=== PATIENT | male | born 1980 | race Caucasian/White ===

== ENCOUNTER 2017-07-18 05:27 | Emergency (ER) | payer BC ==
[2017-07-18] MEDS ORDERED: TORAdol 30 mg Injection IV ONE (05:30)
[2017-07-18] MEDS ORDERED: Phenergan 25 MG INJ IV ONE (05:30)
[2017-07-18] MEDS ORDERED: Sodium Chloride 0.9% 1000 ML 1,000 ML IV SCH (05:30)
[2017-07-18] MEDS ORDERED: Phenergan 25 MG INJ ONE (05:34)
[2017-07-18] MEDS ORDERED: Sodium Chloride 0.9% 1000 ML 1,000 ML ONE (05:34)
[2017-07-18] MEDS ORDERED: TORAdol 30 mg Injection ONE (05:34)
--- NOTE | 2017-07-18 05:35 | ERPHSYRPT ---
- History of Present Illness Time Seen by Provider: 07/18/17 05:27 Historian: patient Exam Limitations: no limitations Physician History: ABOUT 1 HOUR AGO PT AWOKE WITH LEFT FLANK PAIN, NAUSEA, VOMITING, CHILLS AND DIAPHORESIS. Allergies/Adverse Reactions: No Known Drug Allergies Allergy (Unverified 07/18/17 05:33) - Review of Systems Constitutional: Chills Respiratory: No Dyspnea Cardiac: No Chest Pain Abdominal/Gastrointestinal: Nausea, Vomiting, Other (LEFT FLANK PAIN) Endocrine: Excessive Sweating All Other Systems: Reviewed and Negative - Nursing Vital Signs Nursing Vital Signs: Initial Vital Signs Pulse Rate 58 L 07/18/17 05:49 Respiratory Rate 22 07/18/17 05:49 Blood Pressure 134/74 07/18/17 05:49 O2 Sat by Pulse Oximetry 99 07/18/17 05:49 Pain Scale Pain Intensity 0 - Physical Exam General Appearance: moderate distress, alert Eye Exam: PERRL/EOMI Ears, Nose, Throat Exam: TMs normal, pharynx normal, moist mucous membranes Neck Exam: normal inspection Respiratory Exam: lungs clear Cardiovascular Exam: normal heart sounds Gastrointestinal/Abdomen Exam: soft, normal bowel sounds, No tenderness Extremity Exam: normal inspection, No swelling Neurologic Exam: alert, cooperative Skin Exam: diaphoresis - Course Nursing assessment & vital signs reviewed: Yes - CT Exams Abdomen/Pelvis CT Interpretation: Tele-radiologist Report (1.7 mm CALCIFIED STONE IN THE DISTAL LEFT URETER JUST ABOVE THE LEFT UVJ CREATING A MODERATE LEFT HYDRONEPHROSIS. SMALL NON-OBSTRUCTING CALCIFIED STONE IN THE UPPER POLE OF THE RIGHT KIDNEY, NO RIGHT HYDRONEPHROSIS.) Ordered Tests: Active Orders 24 hr Category Date Time Status Clean Catch Urine Specimen STAT Care 07/18/17 05:30 Active IV Insertion STAT Care 07/18/17 05:30 Active ABDOMEN AND PELVIS W/0 CONTRAS [CT] Stat Exams 07/18/17 05:31 Taken AMYLASE Stat Lab 07/18/17 05:47 Completed CBC W DIFF Stat Lab 07/18/17 05:47 Completed CMP Stat Lab 07/18/17 05:47 Completed LIPASE Stat Lab 07/18/17 05:47 Completed MAG [MAGNESIUM] Stat Lab 07/18/17 05:47 Completed UA W/ MICROSCOPIC Stat Lab 07/18/17 05:47 Completed Urine Triage Profile Stat Lab 07/18/17 05:47 Completed Medication Summary Generic Name Dose Route Start Last Admin Trade Name Deejay PRN Reason Stop Dose Admin Sodium Chloride 1,000 mls @ 200 mls/hr 07/18/17 05:30 07/18/17 05:46 Sodium Chloride 0.9% 1000 Ml IV 08/17/17 05:29 200 mls/hr .Q5H OSMAR Administration Discontinued Medications Generic Name Dose Route Start Last Admin Trade Name Deejay PRN Reason Stop Dose Admin Hydromorphone HCl 1 mg 07/18/17 05:36 07/18/17 05:41 Hydromorphone 1 Mg/Ml Ampule IV 07/18/17 05:37 1 mg STAT ONE Administration Hydromorphone HCl Confirm 07/18/17 05:41 Hydromorphone 1 Mg/Ml Ampule Administered 07/18/17 05:42 Dose 1 mg .ROUTE .STK-MED ONE Hydromorphone HCl 1 mg 07/18/17 06:40 07/18/17 06:43 Hydromorphone 1 Mg/Ml Ampule IV 07/18/17 06:41 1 mg STAT ONE Administration Hydromorphone HCl Confirm 07/18/17 06:42 Hydromorphone 1 Mg/Ml Ampule Administered 07/18/17 06:43 Dose 1 mg .ROUTE .STK-MED ONE Ketorolac Tromethamine 30 mg 07/18/17 05:30 07/18/17 05:37 Toradol 30 Mg Injection IV 07/18/17 05:31 30 mg STAT ONE Administration Ketorolac Tromethamine Confirm 07/18/17 05:34 Toradol 30 Mg Injection Administered 07/18/17 05:35 Dose 30 mg .ROUTE .STK-MED ONE Promethazine HCl 12.5 mg 07/18/17 05:30 07/18/17 05:38 Phenergan 25 Mg Inj IV 07/18/17 05:31 25 mg STAT ONE Administration Promethazine HCl Confirm 07/18/17 05:34 Phenergan 25 Mg Inj Administered 07/18/17 05:35 Dose 25 mg .ROUTE .STK-MED ONE Lab/Rad Data: Laboratory Result Diagrams 07/18/17 05:47 07/18/17 05:47 Laboratory Results 07/18/17 07/18/17 07/18/17 Range/Units 05:47 05:47 05:47 WBC 9.5 (4.0-10.5) K/mm3 RBC 4.96 (4.1-5.6) M/mm3 Hgb 14.7 (12.5-18.0) gm/dl Hct 42.5 (42-50) % MCV 85.7 (78-100) fl MCH 29.6 (26-32) pg MCHC 34.6 (32-36) g/dl RDW 13.2 (11.5-14.0) % Plt Count 261 (150-450) K/mm3 MPV 10.6 H (6-9.5) fl Gran % 45.6 (36.0-66.0) % Lymphocytes % 43.3 (24.0-44.0) % Monocytes % 7.3 (0.0-12.0) % Eosinophils % 3.2 (0.00-5.0) % Basophils % 0.6 (0.0-0.4) % Basophils # 0.06 (0-0.4) Sodium 139 (136-145) mEq/L Potassium 3.4 L (3.5-5.1) mEq/L Chloride 105 (98-107) mEq/L Carbon Dioxide 22.6 (21-32) mEq/L Anion Gap 14.6 (5-15) MEQ/L BUN 12 (9-20) mg/dL Creatinine 1.17 (0.55-1.30) mg/dl Estimated GFR > 60 ML/MIN Glucose 128 H (70-110) MG/DL Calcium 9.3 (8.5-10.1) mg/dL Magnesium 1.9 (1.8-2.4) mg/dL Total Bilirubin 0.40 (0.2-1.0) mg/dL AST 29 (15-37) U/L ALT 24 (12-78) U/L Alkaline Phosphatase 78 (46-116) U/L Serum Total Protein 7.1 (6.4-8.2) gm/dL Albumin 4.1 (3.4-5.0) g/dL Amylase 41 (25-115) U/L Lipase 112 (73-393) U/L Ur Collection Type Urine Color (YELLOW) Urine Appearance (CLEAR) Urine pH (5-6) Ur Specific [place] (1.005-1.025) Urine Protein (Negative) Urine Ketones (NEGATIVE) Urine Blood (0-5) Tyree/ul Urine Nitrite (NEGATIVE) Urine Bilirubin (NEGATIVE) Urine Urobilinogen (0-1) mg/dL Ur Leukocyte Esterase (NEGATIVE) Urine Microscopic RBC (0-2) /HPF Ur Epithelial Cells (FEW) /HPF Urine Bacteria (NEGATIVE) /HPF Urine Mucus (NEGATIVE) /HPF Urine Glucose (NEGATIVE) mg/dL Urine Opiates Level (NEGATIVE) Ur Methadone (NEGATIVE) Urine Barbiturates (NEGATIVE) Ur Phencyclidine (PCP) (NEGATIVE) Urine Amphetamine (NEGATIVE) U Benzodiazepine Level (NEGATIVE) Urine Cocaine (NEGATIVE) Urine Marijuana (THC) (NEGATIVE) Specimen Received 07/18/17 07/18/17 Range/Units 05:47 05:47 WBC (4.0-10.5) K/mm3 RBC (4.1-5.6) M/mm3 Hgb (12.5-18.0) gm/dl Hct (42-50) % MCV (78-100) fl MCH (26-32) pg MCHC (32-36) g/dl RDW (11.5-14.0) % Plt Count (150-450) K/mm3 MPV (6-9.5) fl Gran % (36.0-66.0) % Lymphocytes % (24.0-44.0) % Monocytes % (0.0-12.0) % Eosinophils % (0.00-5.0) % Basophils % (0.0-0.4) % Basophils # (0-0.4) Sodium (136-145) mEq/L Potassium (3.5-5.1) mEq/L Chloride (98-107) mEq/L Carbon Dioxide (21-32) mEq/L Anion Gap (5-15) MEQ/L BUN (9-20) mg/dL Creatinine (0.55-1.30) mg/dl Estimated GFR ML/MIN Glucose (70-110) MG/DL Calcium (8.5-10.1) mg/dL Magnesium (1.8-2.4) mg/dL Total Bilirubin (0.2-1.0) mg/dL AST (15-37) U/L ALT (12-78) U/L Alkaline Phosphatase (46-116) U/L Serum Total Protein (6.4-8.2) gm/dL Albumin (3.4-5.0) g/dL Amylase (25-115) U/L Lipase (73-393) U/L Ur Collection Type CLEAN CATCH Urine Color YELLOW (YELLOW) Urine Appearance CLEAR (CLEAR) Urine pH 5.0 (5-6) Ur Specific [place] 1.030 (1.005-1.025) Urine Protein NEGATIVE (Negative) Urine Ketones NEGATIVE (NEGATIVE) Urine Blood 250 (0-5) Tyree/ul Urine Nitrite NEGATIVE (NEGATIVE) Urine Bilirubin NEGATIVE (NEGATIVE) Urine Urobilinogen NORMAL (0-1) mg/dL Ur Leukocyte Esterase NEGATIVE (NEGATIVE) Urine Microscopic RBC 10-15 (0-2) /HPF Ur Epithelial Cells RARE (FEW) /HPF Urine Bacteria FEW (NEGATIVE) /HPF Urine Mucus MODERATE (NEGATIVE) /HPF Urine Glucose NEGATIVE (NEGATIVE) mg/dL Urine Opiates Level NEG. (NEGATIVE) Ur Methadone NEG. (NEGATIVE) Urine Barbiturates NEG. (NEGATIVE) Ur Phencyclidine (PCP) NEG. (NEGATIVE) Urine Amphetamine NEG. (NEGATIVE) U Benzodiazepine Level NEG. (NEGATIVE) Urine Cocaine NEG. (NEGATIVE) Urine Marijuana (THC) NEG. (NEGATIVE) Specimen Received [id number] - Departure Time of Disposition: 07:08 Departure Disposition: Home Clinical Impression: LEFT RENAL COLIC Condition: Stable Critical Care Time: No Referrals: LYNNETTE SALAZAR MD [Primary Care Provider] - Instructions: Kidney Stones Additional Instructions: FOLLOW UP WITH DR DINH(UROLOGIST): CALL [phone] TODAY FOR AN APPOINTMENT. FOLLOW UP WITH PRIVATE DOCTOR TODAY. Prescriptions: Hydrocodone Bit/Acetaminophen [[place] 7.5-325 Tablet] 1 each PO Q4H PRN PRN #14 tablet PRN Reason: Pain Ondansetron [Zofran Odt] 4 mg PO Q4H PRN PRN #14 tab.rapdis PRN Reason: Nausea/Vomiting
[2017-07-18] MEDS ORDERED: Hydromorphone 1 mg/ml Ampule IV ONE ×2 (05:36→06:40)
[2017-07-18] MEDS ORDERED: Hydromorphone 1 mg/ml Ampule ONE ×2 (05:41→06:42)
[2017-07-18 05:44] LABS: BASOPHIL % 0.6 % (0.0-0.4); Eosinophil % 3.2 % (0.00-5.0); Granulocytes % 45.6 % (36.0-66.0); Lymphocytes % 43.3 % (24.0-44.0); Mean Cell Volume 85.7 fl (78-100); Mean Corpuscular Hemoglobin 29.6 pg (26-32); Mean Platelet Volume 10.6 fl (6-9.5); Monocytes % 7.3 % (0.0-12.0); Platelet Count 261 K/mm3 (150-450); Red Blood Count 4.96 M/mm3 (4.1-5.6); Red Cell Distribution Width 13.2 % (11.5-14.0); White Blood Count 9.5 K/mm3 (4.0-10.5)
[2017-07-18 06:12] LABS: ALBUMIN 4.1 g/dL (3.4-5.0); ALKALINE PHOSPHATASE 78 U/L (46-116); ANION GAP 14.6 MEQ/L (5-15); BLOOD UREA NITROGEN 12 mg/dL (9-20); CHLORIDE 105 mEq/L (98-107); Carbon Dioxide 22.6 mEq/L (21-32); Glucose 128 MG/DL (70-110); LIPASE 112 U/L (73-393); Potassium 3.4 mEq/L (3.5-5.1); SGOT/AST 29 U/L (15-37); SGPT/ALT 24 U/L (12-78); SODIUM 139 mEq/L (136-145); Total Protein 7.1 gm/dL (6.4-8.2)
[2017-07-18 06:38] LABS: ADD URINE CULTURE? NO (NO); Bilirubin NEGATIVE (NEGATIVE); Blood 250 Ery/ul (0-5); COMPLETE URINE MICROSCOPIC? YES; Collection Type CLEAN CATCH; Glucose NEGATIVE (NEGATIVE); Leukocyte Esterase NEGATIVE (NEGATIVE)
[2017-07-18 06:39] LABS: Bacteria FEW /HPF (NEGATIVE); Epithelial Cells RARE /HPF (FEW); Mucus MODERATE /HPF (NEGATIVE)
[2017-07-18 07:00] VITALS: PULSE 56
[2017-07-18] MEDS ORDERED: Klor Con 10 MEQ PO ONE ×2 (07:09→07:11)
[2017-07-18 07:15] VITALS: BP 127/56; O2SAT 97
--- NOTE | 2017-07-18 09:12 | XRAY ---
Indication: Left flank pain, nausea, and vomiting. Multiple contiguous axial images obtained through the abdomen and pelvis without contrast as ordered. Comparison: None Lung bases demonstrates mild bibasilar dependent atelectasis and right lower lobe calcified granuloma. Heart is not enlarged. Noncontrasted stomach and bowel loops appear nonobstructed. Mild diffuse scattered colonic fecal debris. Normal appendix. No free fluid/air. There is a 3 mm distal left ureteral calculus just proximal to the UVJ. Proximal left ureter is prominent up to 6 mm and there is mild hydronephrosis and renal edema consistent with partial obstructive uropathy. No perinephric fluid. Solitary nonobstructing right renal micro-calculus. Bilateral seminal vesicle and prostate calcifications. Remaining liver, gallbladder, pancreas, spleen, adrenal glands, bladder, and aorta appear unremarkable. Osseous structures intact. Impression: 1. 3 mm distal left ureteral calculus producing partial obstruction. Nonobstructing right renal micro-calculus. 2. Fecal stasis without obstruction. Comment: Preliminary interpretation was made by [facility]. No discrepancy. CTDI 17.50
== END 2017-07-18 07:20 | disposition home or self-care (01) ==
LOC: ED 05:27
DX: N23 Unspecified renal colic (principal); R11.2 Nausea with vomiting, unspecified; R61 Generalized hyperhidrosis
CPT/HCPCS: 36000; 36415; 74176; 80053; 80307; 81000; 82150; 83690; 83735; 85025; 96374; 99284; J1170; J1885; J2550; A9270-GY